=== PATIENT | male | born 2000 ===

== ENCOUNTER → 2018-09-01 | Day surgery (SDC) | payer SELFPAY ==
[~2018-09-01] MED LIST: Dexamethasone 20 MG/5 ML VIAL ONE; Fentanyl 100 MCG/2 ML VIAL ONE; Lidocaine 1% PF 5 ML VIAL ONE; Ondansetron PF 4 MG/2 ML Vial ONE; PROPOFOL 200 MG/20 ML VIAL ONE; Succinylcholine Chloride 20 MG/ML 10 ml SYRINGE FS ONE
--- NOTE | 2018-09-01 02:53 | CON ---
DATE OF CONSULTATION: 09/01/2018 REASON FOR CONSULTATION: Esophageal food bolus impaction. CONSULTING PROVIDER: Dr. Way. HISTORY OF PRESENT ILLNESS: The patient is a 18-year-old male with no significant past medical history, presenting with complaints of dysphagia after ingestion of a meal earlier this evening. He states that he was in his usual state of health until approximately 8:30 to 9 o'clock this evening when he was sitting down to eat chicken that he prepared at home. He did take a larger bite of chicken and shortly after ingestion had a sensation of the food getting caught approximately at the sternal notch. Multiple attempts to vomit did not dislodge the piece of food, which then prompted him to seek healthcare assistance at [facility] in [place], [place]. There in the Urgent Care Center along with obtaining routine labs they attempted the use of glucagon in order to facilitate the passage of the food bolus, which was unsuccessful, at which point he was transferred to [facility] for further evaluation and urgent upper endoscopy. Upon evaluation at [facility] the patient states he does have some chest pressure and intermittent nausea and retching while attempted to relieve the obstruction; however, he has been able to do so. He has also been unable to tolerate his own secretions with an emesis bag at bedside filled with saliva. Currently, he denies any fevers, chills, GI bleeding, weight loss or prior history of food bolus impaction. REVIEW OF SYSTEMS: A 10-category review of systems was obtained with all responses negative except for the pertinent positives as listed in HPI. PAST MEDICAL HISTORY: None. PAST SURGICAL HISTORY: None. FAMILY HISTORY: Denies any GI malignancies. SOCIAL HISTORY: Denies any tobacco or illicit drug use. Endorses the consumption of approximately 4-5 beers every other weekend. OUTPATIENT MEDICATIONS: None. ALLERGIES: NO KNOWN DRUG ALLERGIES. PHYSICAL EXAMINATION: VITAL SIGNS: Pulse 79, blood pressure 111/89, respiratory rate 18, saturating 98% on room air. GENERAL: The patient is lying in bed, in no acute distress. Alert and oriented x4. HEENT: Normocephalic, atraumatic. NECK: Supple. No JVD or scleral icterus noted. CARDIOVASCULAR: Regular rate and rhythm with no discernible murmurs, gallops, or rubs. RESPIRATORY: Clear to auscultation bilaterally with no discernible wheezes or rales. ABDOMEN: Normoactive bowel sounds. Soft, nontender, nondistended. EXTREMITIES: No cyanosis, clubbing, or edema. LABORATORY DATA: Routine labs were obtained at [facility] with CBC showing a white blood cell count of 8.6, hemoglobin 15.9, hematocrit 48.3, platelets 223. Chemistry with a sodium of 143, potassium 4.1 chloride 103, CO2 of 28, BUN 13, creatinine 1.2, glucose 88. IMAGING DATA: No current GI imaging is available for review. ASSESSMENT AND PLAN: The patient is a 18-year-old male with no significant past medical history, presenting with esophageal food bolus impaction. Food bolus impaction: The patient is presenting with acute onset of dysphagia after the ingestion of chicken earlier this evening characterized as the sensation of food getting stuck approximately at the sternal notch, currently presenting with an emesis bag at bedside full of saliva as the patient is unable to tolerate his own secretions. At this time, this is fairly indicative of an esophageal food bolus impaction, which needs to be intervened upon urgently given the higher risk of esophageal perforation with watchful waiting. RECOMMENDATIONS: 1. We will continue n.p.o. status in anticipation for EGD. 2. We will perform EGD urgently tonight with removal of the food bolus. 3. Further recommendations to follow EGD. 4. We will continue to follow. Please call with any questions. Job ID: [id number]
--- NOTE | 2018-09-01 03:27 | OP ---
DATE OF PROCEDURE: 09/01/2018 PROCEDURE: EGD with foreign body removal and biopsy. INDICATION FOR PROCEDURE: Esophageal food bolus impaction. DESCRIPTION OF PROCEDURE: After the risks and benefits of the procedure were explained to the patient including risks of bleeding, infection, perforation, reactions to anesthesia, aspiration and/or pain, informed consent was obtained. The patient was then taken to the endoscopy suite, where general anesthesia was administered with endotracheal tube intubation via Anesthesia support. Once the patient was successfully intubated and sedated, the standard gastroscope was introduced into the mouth with intubation of the esophagus, stomach, and the proximal small intestines with the findings listed below. The patient tolerated the procedure well with no immediate perioperative complications. Upon conclusion of the procedure, all equipment was removed from the patient and the patient was transferred to PACU in satisfactory condition. FINDINGS: Esophagus: A large food bolus was encountered at approximately 20-25 cm past the incisors, which initially did not allow the passage of the scope and was completely obstructing the esophageal lumen; however with gentle pressure placed on the food bolus itself, it was able to be successfully advanced into the stomach without difficulty or injury to the esophagus. Upon further evaluation of the esophagus, there were small longitudinal furrows seen in the proximal and mid esophagus as well as possible felinization of the esophagus itself. Otherwise, normal-appearing mucosa was seen throughout the proximal, mid, and distal esophagus. There was no evidence of erosions, ulcerations, mass, lesions, or active/recent bleeding. Random biopsies were taken from both the proximal and distal esophagus for further evaluation of possible eosinophilic esophagitis. Stomach: Normal-appearing mucosa was seen in the gastric cardia, fundus, body, greater curvature, antrum, and incisura. There was no evidence of erosions, ulcerations, mass, lesions, or active/recent bleeding. Duodenum: Normal-appearing mucosa was seen in both the duodenal bulb and second portion of the duodenum. There was no evidence of erosions, ulcerations, mass, lesions, or active/recent bleeding. IMPRESSION: 1. Large food bolus was encountered at 20-25 cm past the incisors and successfully advanced into the stomach with gentle pressure. 2. Findings concerning for eosinophilic esophagitis, now status post biopsies. 3. Otherwise normal upper endoscopy. RECOMMENDATIONS: 1. We will follow up on the biopsy results with repeat EGD pending on pathology report. 2. We would maintain a liquid diet over the next 24 hours and slowly advance diet as tolerated. 3. Strongly recommend adequate chewing of food before swallowing to prevent further recurrences. 4. If the biopsies are positive for eosinophilic esophagitis, the patient will need to be placed on long-term PPI and/or fluticasone therapy. 5. The patient to follow up in the GI clinic as needed and also pending biopsy results. At this point given removal of the food bolus, the patient can be discharged to home with followup in the GI clinic as needed. Please call with any questions. Job ID: [id number]
== END ==
LOC: SDC/OP 00:30
PROVIDERS: ATTEND Internal Medicine
PROC: 0DC58ZZ Extirpation of Matter from Esophagus, Via Natural or Artificial Opening Endoscopic (ICD-10-PCS; principal; 2018-09-01)
PROC: 0DB68ZX Excision of Stomach, Via Natural or Artificial Opening Endoscopic, Diagnostic (ICD-10-PCS; principal; 2018-09-01)
DX: T18.128A Food in esophagus causing other injury, initial encounter (principal); K20.9 Esophagitis, unspecified
CPT/HCPCS: 88305; 88312; 88313; J1100; J2001; J2405; J2704; J3010